=== PATIENT | female | born 1935 | race Caucasian/White ===

== ENCOUNTER 2016-10-17 11:23 | Emergency (ER) | payer OTHER ==
[~2016-10-17] VITALS: Ht 157.4 cm; Wt 88.5 kg
[~2016-10-17 11:23] MED LIST: AMARYL2 MG PO; ANASTROZOLE1 M1 PO; ASPIRIN81 M1 PO; BUMETANIDE1 MG PO; BUMETANIDE2 MG PO; CALCIUM CARBON500 M1 PO; CELEBREX100 MG PO; CIPROFLOXACIN500 MG PO; CORTISPORIN SUS10 ML OT; COZAAR100 MG PO; DOK COLACE100 MG PO; DUONEB 3 MG/3 ML3 M1 INH; FAMOTIDINE20 M1 PO; HUMALOG100 U/ML SC; K-TAB10 MEQ PO; LABETALOL HYDR200 MG PO; LANTUS100 U/ML SC; LEVEMIR FLEX100 U/ML SC; LEVOXYL0.1 M1 PO; LORAZEPAM0.5 MG PO; MILK OF MA400 MG/51 PO; MIRALAX POWDER17 G1 PO; NORVASC2.5 MG PO; NYSTATIN CREAM15 GM T; OXYBUTYNIN5 MG PO; PANTOPRAZOLE SO40 MG PO; PAROXETINE20 MG PO; PRADAXA150 MG PO; PRAVACHOL40 MG PO; TIKOSYN0.125 MG PO; TIKOSYN0.25 MG PO; VESICARE5 MG PO; VICO75300 PO; VITAMIN D32000 UNIT PO
[2016-10-17 11:51] LABS: BASO % 0.7 % (0.0-1.0); EOS # 0.2 10*3/uL (0.0-0.4); EOS % 3.3 % (1.0-4.0); HEMATOCRIT 34.1 % (37.0-47.0); HEMOGLOBIN 11.2 g/dl (12.0-16.0); LYMPH # 1.1 10*3/uL (1.3-4.4); LYMPH % 17.6 % (27.0-41.0); MEAN CELL VOLUME 86.5 fl (81.0-99.0); MEAN CORPUSCULAR HGB 28.4 pg (27.0-31.0); MEAN CORPUSCULAR HGB CONC 32.8 g/dl (33.0-37.0); MONO # 0.6 10*3/uL (0.1-1.0); MONO % 9.2 % (3.0-9.0); NEUT # 4.1 10*3/uL (2.3-7.9); NEUT % 68.7 % (47.0-73.0); PLATELET COUNT AUTOMATED 221 10*3/uL (130-400); RED BLOOD COUNT 3.94 10*6/uL (4.10-5.10); RED CELL DISTRI WIDTH 16.8 % (0-14.5)
[2016-10-17 12:00] LABS: INTERNATIONAL NORM RATIO 1.3 (2.0-3.5); PROTHROMBIN TIME 13.5 SECONDS (9.0-12.4)
[2016-10-17 12:20] LABS: ALBUMIN 3.2 gm/dl (3.1-4.5); BILIRUBIN, DIRECT 0.1 mg/dL (0.0-0.2); BILIRUBIN, TOTAL 0.7 mg/dl (0.2-1.0); MAGNESIUM 2.2 mg/dL (1.5-2.1); POTASSIUM 3.4 mmol/L (3.5-5.1); TOTAL PROTEIN 6.1 gm/dL (6.4-8.2); TROPONIN I 0.045 ng/ml (<0.045)
[2016-10-17] MEDS ORDERED: ALDACTONE25 M1 PO ×2 (12:59→13:50)
[2016-10-17] MEDS ORDERED: EFFEXOR XR37.5 M1 PO (13:02)
[2016-10-17] MEDS ORDERED: ANASTROZOLE1 M1 PO (13:50)
[2016-10-17] MEDS ORDERED: BUMETANIDE1 MG PO (13:51)
[2016-10-17] MEDS ORDERED: [UNRECOGNIZED DRUG - OTHER] PO (13:51)
[2016-10-17] MEDS ORDERED: COUMADIN2 M1 PO (13:52)
[2016-10-17] MEDS ORDERED: COUMADIN5 M2 PO (13:52)
[2016-10-17] MEDS ORDERED: DOFETILIDE125 MCG PO (13:53)
[2016-10-17] MEDS ORDERED: Coumadin7.5 MG PO (13:53)
[2016-10-17] MEDS ORDERED: HUMALOG100 U/ML SC (13:54)
[2016-10-17] MEDS ORDERED: LABETALOL HCL200 MG PO (13:55)
[2016-10-17] MEDS ORDERED: HYDROXYZINE10 MG PO (13:55)
[2016-10-17] MEDS ORDERED: LEVEMIR10 ML SC (13:56)
[2016-10-17] MEDS ORDERED: LEVOXYL0.1 M1 PO (13:57)
[2016-10-17] MEDS ORDERED: MICRO-K PO (13:59)
[2016-10-17] MEDS ORDERED: OXYBUTYNIN CHLOR5 MG PO (14:00)
[2016-10-17] MEDS ORDERED: PAROXETINE20 MG PO (14:00)
[2016-10-17] MEDS ORDERED: PRADAXA150 MG PO (14:01)
[2016-10-17] MEDS ORDERED: PROTONIX40 MG PO (14:02)
[2016-10-17] MEDS ORDERED: PROBIOTIC1 EAC1 PO (14:02)
[2016-10-17] MEDS ORDERED: QUESTRAN LIGHT4 GM PO (14:03)
[2016-10-17] MEDS ORDERED: TYLENOL325 M2 PO (14:04)
[2016-10-17] MEDS ORDERED: Zaroxolyn,Diul2.5 MG PO (14:05)
== END 2016-10-17 17:14 | disposition short-term general hospital (02) ==
LOC: ED 11:23
PROVIDERS: Emergency Medicine
DX: R41.82 Altered mental status, unspecified (principal); G91.2 (Idiopathic) normal pressure hydrocephalus; M25.561 Pain in right knee; E11.22 Type 2 diabetes mellitus with diabetic chronic kidney disease; I13.0 Hypertensive heart and chronic kidney disease with heart failure and stage 1 through stage 4 chronic kidney disease, or unspecified chronic kidney disease; N18.1 Chronic kidney disease, stage 1; E03.9 Hypothyroidism, unspecified; I25.10 Atherosclerotic heart disease of native coronary artery without angina pectoris; Z79.899 Other long term (current) drug therapy; Z79.4 Long term (current) use of insulin; Z79.02 Long term (current) use of antithrombotics/antiplatelets